=== PATIENT | male | born 1970 | race Caucasian/White ===

== ENCOUNTER 2016-12-19 08:24 | Observation (INO) | payer OTHER ==
[2016-12-19 08:25] VITALS: BMI 24.0
[2016-12-19] MEDS ORDERED: Sodium Chloride 0.9% 1,000 ML IV ONE (09:14)
[2016-12-19] MEDS ORDERED: Piperacillin/Tazobact 3.375 gm 100 ML IV STA (09:17)
[2016-12-19] MEDS ORDERED: Sodium Chloride 0.9% 1,000 ML ONE (10:26)
[2016-12-19] MEDS ORDERED: Piperacillin/Tazobact 3.375 gm 100 ML IVPB ONE (10:30)
[2016-12-19 10:36] LABS: BASO % 0.3 % (0.0-2.0); EOS % 0.2 % (0.0-4.0); HEMATOCRIT 42.8 % (35.0-51.0); LYMPH # 1.2 K/uL (1.0-4.3); MEAN CORPUSCULAR HEMOGLOBIN 27.1 pg (27.0-31.0); MEAN CORPUSCULAR HGB CONC 32.3 g/dL (33.0-37.0); MEAN PLATELET VOLUME 8.3 fL (7.2-11.7); MONO # 0.9 K/uL (0.0-0.8); MONO % 8.1 % (0.0-10.0); RED CELL DISTRIBUTION WIDTH 13.6 % (11.5-14.5); WHITE BLOOD COUNT 10.8 K/uL (4.8-10.8)
[2016-12-19 10:51] LABS: CHLORIDE 95 mmol/L (98-107); SODIUM 138 mmol/L (132-148)
[2016-12-19 10:52] LABS: POTASSIUM 3.7 mmol/L (3.6-5.2)
[2016-12-19 10:54] LABS: GFR AFRICAN-AMERICAN > 60
[2016-12-19 10:55] LABS: BLOOD UREA NITROGEN 11 mg/dL (9-20); CARBON DIOXIDE 28 mmol/L (22-30); GLUCOSE,RANDOM 113 mg/dL (75-110)
--- NOTE | 2016-12-19 11:28 | C.PDOC ---
History Of Present Illness 46 yr old male presents to the ER for evaluation of pain and swelling to the chin area and lower lip for the past 2 days. Patient reports 3 days ago he noticed a abscess which he popped and ever since he has had pain and swelling to the area which radiates to the left side of the jaw and under. Patient denies fever, chills, vision changes, chest pain, SOB, nausea, vomiting, neck pain, weakness or numbness. Time Seen by Provider: 12/19/16 09:07 Chief Complaint (Nursing): Abnormal Skin Integrity History Per: Patient History/Exam Limitations: no limitations Onset/Duration Of Symptoms: Days (2) Past Medical History Reviewed: Historical Data, Nursing Documentation, Vital Signs Vital Signs: Last Vital Signs Temp 98.3 F 12/19/16 11:42 Pulse 77 12/19/16 11:42 Resp 20 12/19/16 11:42 BP 125/75 12/19/16 11:42 Pulse Ox 99 12/19/16 13:29 Family History: States: No Known Family Hx - Social History Hx Tobacco Use: No Hx Alcohol Use: No Hx Substance Use: No - Immunization History Hx Tetanus Toxoid Vaccination: No Hx Influenza Vaccination: No Hx Pneumococcal Vaccination: No Review Of Systems Except As Marked, All Systems Reviewed And Found Negative. Constitutional: Positive for: Other (Pianful and swelling area to the chin, radaiting to the jaw line. ). Negative for: Fever, Chills Cardiovascular: Negative for: Chest Pain Respiratory: Negative for: Shortness of Breath Gastrointestinal: Negative for: Nausea, Vomiting Neurological: Negative for: Weakness, Numbness, Headache, Dizziness Physical Exam - Physical Exam Appears: Well, Non-toxic, No Acute Distress Skin: Warm, Dry, Other (Swelling and tenderness to the left jaw, angle of the jaw. ) Head: Atraumatic, Normacephalic Oral Mucosa: Moist Lips: Other ((+) Significant edema to the lower lip with point erythema to the mid chin. ) Throat: Normal, No Erythema, No Exudate Lymphatic: Adenopathy (cervical chain adenopathy), Other (No fluctuance. No induration. ) Cardiovascular: Rhythm Regular, No Murmur Respiratory: Normal Breath Sounds, No Stridor, No Wheezing Extremity: Normal ROM, No Swelling Neurological/Psych: Oriented x3, Normal Speech, Normal Motor ED Course And Treatment - Laboratory Results Result Diagrams: 12/19/16 10:30 12/19/16 10:30 O2 Sat by Pulse Oximetry: 99 - CT Scan/US CT - Maxillofacial Other Rad Studies (CT/US): Read By Radiologist, Radiology Report Reviewed CT/US Interpretation: CT scan of the maxillofacial skeleton 12/19/2016. History : Rule out jaw abscess. Contiguous helical/transaxial l computed tomography images of the mandible performed in standard fashion following intravenous injection of approximately 100 cc of Visipaque 320 contrast material. Additional 2 dimensional sagittal and coronal reformats provided. . No prior study available for comparison. Radiation dose: Total exam DLP = 825.35 mGy- cm. Findings: The current study reveals infiltration/induration changes within the anterior mid/bilateral soft tissues overlying the symphysis of the mandible extending posterolaterally more so on the left than right. Findings are consistent with localized cellulitis. No definitive drainable fluid/ abscess collection identified. The mandibular cortex appears intact. No evidence of significant dental caries identified to suggest a dental origin of this presumed cellulitis. There may also be some tjjb-[id number] swelling of the lower and to a lesser degree upper lips. Incidental note made of missing left side incisor tooth and right bicuspid right canine tooth as well as left 2nd bicuspid and left 1st molar. There are multiple small to medium sized bilateral cervical lymph nodes seen within the submental, submandibular, jugulodigastric and posterior jugular chain regions. The largest of these lymph nodes are located in the submandibular regions, left measuring approximately 17 mm and on the right measuring approximately 16 mm. These lymph nodes are likely reactive. The visualized parotid and submandibular glands unremarkable. There is mild of enlargement of the palatine tonsils however no peritonsillar abscess or fluid collection. Slight encroachment of lingual tonsils into the vallecula. Free margin of the epiglottis is normal. The visualized paranasal sinuses are well-developed mid. The no fluid levels seen to suggest acute sinusitis. Minimal mucosal thickening noted within the ethmoid air complex extending superiorly into the frontal sinus. . Impression: Findings are consistent with cellulitis involving the anterior mid and bilateral soft tissues overlying the symphysis of the mandible extending posterolaterally more so on the left side than right. In addition, there appears to be swelling of the lower lip and probably upper lip as well. No definitive drainable fluid/ abscess collection. No evidence of osteomyelitis seen at this time. See above discussion for additional findings and details. Medical Decision Making Medical Decision Making: PLAN: * CT - Maxillofacial * CBC * Zoysn IV * Vancomycin IV * Sodium Chloride IV Disposition Counseled Patient/Family Regarding: Studies Performed - Disposition Disposition: HOSPITALIZED Disposition Time: 15:04 Condition: GUARDED - POA Present On Arrival: None - Clinical Impression Clinical Impression: Cellulitis - Scribe Statement The provider has reviewed the documentation as recorded by the Taylor Kimball Provider Attestation: All medical record entries made by the Taylor were at my direction and personally dictated by me. I have reviewed the chart and agree that the record accurately reflects my personal performance of the history, physical exam, medical decision making, and the department course for this patient. I have also personally directed, reviewed, and agree with the discharge instructions and disposition. Decision To Admit - Pt Status Changed To: Hospital Disposition Of: Observation - . Bed Request Type: Regular Patient Diagnosis: Cellulitis
[2016-12-19] MEDS ORDERED: Iodixanol 320 MG/ML 100 ML BOTTLE IV ONE (11:56)
--- NOTE | 2016-12-19 13:28 | CT ---
CT scan of the maxillofacial skeleton 12/19/2016. History: Rule out jaw abscess. Contiguous helical/transaxial l computed tomography images of the mandible performed in standard fashion following intravenous injection of approximately 100 cc of Visipaque 320 contrast material. Additional 2 dimensional sagittal and coronal reformats provided. . No prior study available for comparison. Radiation dose: Total exam DLP = 825.35 mGy-cm. Findings: The current study reveals infiltration/induration changes within the anterior mid/bilateral soft tissues overlying the symphysis of the mandible extending posterolaterally more so on the left than right. Findings are consistent with localized cellulitis. No definitive drainable fluid/ abscess collection identified. The mandibular cortex appears intact. No evidence of significant dental caries identified to suggest a dental origin of this presumed cellulitis. There may also be some aocv-se-ivqekozf swelling of the lower and to a lesser degree upper lips. Incidental note made of missing left side incisor tooth and right bicuspid right canine tooth as well as left 2nd bicuspid and left 1st molar. There are multiple small to medium sized bilateral cervical lymph nodes seen within the submental, submandibular, jugulodigastric and posterior jugular chain regions. The largest of these lymph nodes are located in the submandibular regions, left measuring approximately 17 mm and on the right measuring approximately 16 mm. These lymph nodes are likely reactive. The visualized parotid and submandibular glands unremarkable. There is mild of enlargement of the palatine tonsils however no peritonsillar abscess or fluid collection. Slight encroachment of lingual tonsils into the vallecula. Free margin of the epiglottis is normal. The visualized paranasal sinuses are well-developed mid. The no fluid levels seen to suggest acute sinusitis. Minimal mucosal thickening noted within the ethmoid air complex extending superiorly into the frontal sinus. . Impression: Findings are consistent with cellulitis involving the anterior mid and bilateral soft tissues overlying the symphysis of the mandible extending posterolaterally more so on the left side than right. In addition, there appears to be swelling of the lower lip and probably upper lip as well. No definitive drainable fluid/abscess collection. No evidence of osteomyelitis seen at this time. See above discussion for additional findings and details.
--- NOTE | 2016-12-19 20:09 | CP.PCM.PN ---
Subjective - Date & Time of Evaluation Date of Evaluation: 12/19/16 Time of Evaluation: 06:45 - Subjective Subjective: H&P dictated #[id number] Objective - Vital Signs/Intake and Output Vital Signs (last 24 hours): Temp Pulse Resp BP Pulse Ox 99.8 F H 81 18 114/74 97 12/19/16 17:16 12/19/16 17:16 12/19/16 17:16 12/19/16 17:16 12/19/16 17:16 - Medications Medications: Current Medications Acetaminophen (Tylenol 325mg Tab) 650 mg PO Q6 PRN PRN Reason: Pain, Mild (1-3) Last Admin: 12/19/16 18:18 Dose: 650 mg Ceftriaxone Sodium (Rocephin Iv 1 Gm Duplex) 50 mls @ 100 mls/hr IVPB DAILY [facility] Vancomycin/Sodium Chloride (Vancocin) 200 mls @ 166.6 mls/hr IVPB Q12H [facility] Pneumococcal Polyvalent Vaccine (Pneumovax 23 Vaccine) 0.5 ml IM .ONCE ONE Stop: 12/21/16 10:01
[2016-12-19] MEDS: Vancomycin 1 gm/NS 200 ml 200 ML IVPB SCH (21:00)
--- NOTE | 2016-12-19 23:11 | HP ---
CHIEF COMPLAINT: Swelling of the chin and lower lip, progressively getting worse over the past 4 days. HISTORY OF PRESENT ILLNESS: The patient is a 46-year-old male with a remote history of anemia, status post blood transfusion, unknown type of anemia, had not followed up with any doctors, came into the ED with complaints of lower lip , chin and left facial swelling, which has been progressively getting worse over the past 4 days. As per the patient, he had any groan hair and started noticing swelling and pimple, which he manipulated and extracted pus. Since then, he has noticed worsening swelling and redness and erythema and pain for which he came to the ED for further evaluation. When I examine, he denies any dizziness. Complains of headache on the left side of his head where the swelling is. Denies any nausea, vomiting, abdominal pain, diarrhea or constipation. Denies any chest pain, shortness of breath or wheezing. Denies any cold, cough, sore throat, runny nose. Denies any fever proceeded to this or did not have any chills or rigors. Denies any urinary complaints. Denies any leg pains or leg cramps. Denies any other neurologic symptoms. PAST MEDICAL HISTORY: Anemia, status post blood transfusion many years ago. PAST SURGICAL HISTORY: Denies any past surgical history. FAMILY HISTORY: Denies any family history of hypertension, diabetes. 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 SOCIAL HISTORY: Denies any smoking, alcohol or drug abuse. ALLERGIES: No known drug allergies. MEDICATIONS: None at home. REVIEW OF SYSTEMS: As described in history of present illness. All other systems reviewed and were found to be negative. PHYSICAL EXAMINATION: GENERAL: Middle-aged male lying in bed in no acute distress. VITAL SIGNS: Blood pressure 114/74, pulse 81, respirations 18, temperature 99.8 degrees Fahrenheit, O2 sats 97% on room air. HEENT: Pupils equal, round, reacting to light and accommodation. Extraocular muscles intact. No icterus, no pallor. There is swelling of the lower lip and swelling of the chin and both the face and the lower jaw, warm to touch, tenderness present. There is no oozing noted. NECK: Supple. No JVD. CHEST: Moving equally bilaterally on respiration. LUNGS: Bilateral vesicular breath sounds. No wheezing, no rhonchi. CARDIOVASCULAR: S1, S2 present, regular. ABDOMEN: Soft, nontender. Bowel sounds present. No guarding, no rigidity, no rebound tenderness noted. CENTRAL NERVOUS SYSTEM: Alert, awake, oriented x 3. No focal deficits noted. EXTREMITIES: No edema. Palpable peripheral pulses. LABORATORY DATA: Labs done from ED, WBC 10.8, hemoglobin 13.8, hematocrit 42.8 , platelets 180. Sodium 138, potassium 3.7, chloride 95, bicarbonate 28, BUN 11 , creatinine 0.8, glucose 113, calcium 9.0. Facial bone CT consistent with bilateral soft tissues overlying the surfaces of the mandible extending posteriorly, more so on the left side than the right. Swelling of the lower lip and upper lip. There is no drainable abscess collection. No osteomyelitis. Lymph node enlarged, most likely reactive. ASSESSMENT AND PLAN: Middle-aged male with no significant past medical history other than remote history of anemia, status post blood transfusion. H and H normal. He came into the ED with a 4-day history of lower lip, chin and left facial swelling progressively getting worse with difficulty swallowing. In the ED, the patient underwent CT of the face, consistent with cellulitis. The patient is being admitted. 1. Facial cellulitis without any evidence of abscess. The patient received Zosyn and vancomycin in the ED. We will continue with Rocephin 1 gram IV daily , vancomycin 1 gram IV q. 12 hours. We will repeat labs in the morning. We will obtain faciomaxillary surgical consultation. We will obtain ID evaluation. We will add further recommendation as his clinical course progresses. Graeme Sargent MD cc: [id number] TT: 12/19/2016 23:11:21 kiera CHAVEZ
[2016-12-20 00:28] VITALS: RESP 20
[2016-12-20 07:46] LABS: BASO % 0.4 % (0.0-2.0); EOS # 0.1 K/uL (0.0-0.7); EOS % 1.8 % (0.0-4.0); HEMATOCRIT 40.8 % (35.0-51.0); LYMPH # 1.1 K/uL (1.0-4.3); LYMPH % 14.3 % (20.0-40.0); MEAN CELL VOLUME 84.2 fL (80.0-94.0); MEAN CORPUSCULAR HEMOGLOBIN 27.7 pg (27.0-31.0); MEAN CORPUSCULAR HGB CONC 32.9 g/dL (33.0-37.0); MEAN PLATELET VOLUME 8.5 fL (7.2-11.7); MONO # 0.9 K/uL (0.0-0.8); MONO % 11.6 % (0.0-10.0); NRBC % 0.1 % (0.0-2.0); RED CELL DISTRIBUTION WIDTH 14.1 % (11.5-14.5); WHITE BLOOD COUNT 7.8 K/uL (4.8-10.8)
[2016-12-20 08:07] LABS: CHLORIDE 96 mmol/L (98-107)
[2016-12-20 08:08] LABS: SODIUM 138 mmol/L (132-148)
[2016-12-20 08:10] LABS: CARBON DIOXIDE 27 mmol/L (22-30); CHOLESTEROL 179 mg/dL (0-199); GFR AFRICAN-AMERICAN > 60
[2016-12-20 08:11] LABS: ALB/GLOB RATIO 1.1 (1.0-2.1); ALKALINE PHOSPHATASE 74 U/L (38-126); ALT/SGPT 51 U/L (21-72); AST/SGOT 40 U/L (17-59); BILIRUBIN,TOTAL 0.9 mg/dL (0.2-1.3); BLOOD UREA NITROGEN 8 mg/dL (9-20); CALCIUM 8.8 mg/dl (8.6-10.4); GLUCOSE,RANDOM 102 mg/dL (75-110); TOTAL PROTEIN 8.1 g/dL (6.3-8.3)
[2016-12-20 08:28] LABS: RBC URINE < 1 /hpf (0-3); URINE BILIRUBIN NEGATIVE (NEGATIVE); URINE BLOOD NEGATIVE (NEGATIVE); URINE COLOR Straw (YELLOW); URINE GLUCOSE (UA) NORMAL (Normal); URINE KETONE NEGATIVE (NEGATIVE); URINE LEUKOCYTE ESTERASE NEG Leu/uL (Negative); URINE PROTEIN NEGATIVE (NEGATIVE); URINE UROBILINOGEN NORMAL mg/dL (0.2-1.0); WBC URINE < 1 /hpf (0-5)
[2016-12-20 09:00] LABS: THYROID STIMULATING HORMONE 1.52 mIU/L (0.46-4.68)
[2016-12-20] MEDS: Vancomycin 1 gm/NS 200 ml 200 ML IVPB SCH ×2 (09:36→20:21)
--- NOTE | 2016-12-20 10:55 | CP.PCM.PN ---
Subjective - Date & Time of Evaluation Date of Evaluation: 12/20/16 Time of Evaluation: 10:00 - Subjective Subjective: Progress note dictated #[id number] Objective - Vital Signs/Intake and Output Vital Signs (last 24 hours): Temp Pulse Resp BP Pulse Ox 98.4 F 75 20 103/64 98 12/20/16 08:00 12/20/16 08:00 12/20/16 08:00 12/20/16 08:00 12/20/16 08:00 Intake and Output: 12/20/16 12/20/16 06:59 18:59 Intake Total 550 240 Balance 550 240 - Medications Medications: Current Medications Acetaminophen (Tylenol 325mg Tab) 650 mg PO Q6 PRN PRN Reason: Pain, Mild (1-3) Last Admin: 12/20/16 06:36 Dose: 650 mg Ceftriaxone Sodium (Rocephin Iv 1 Gm Duplex) 50 mls @ 100 mls/hr IVPB DAILY [facility] Vancomycin/Sodium Chloride (Vancocin) 200 mls @ 166.6 mls/hr IVPB Q12H [facility] Last Admin: 12/20/16 09:36 Dose: 166.6 mls/hr Pneumococcal Polyvalent Vaccine (Pneumovax 23 Vaccine) 0.5 ml IM .ONCE ONE Stop: 12/21/16 10:01 - Labs Labs: 12/20/16 07:28 12/20/16 07:28
[2016-12-20] MEDS: cefTRIAXone IV 1 gm in Dextros 50 ML IVPB SCH (11:03)
--- NOTE | 2016-12-20 20:28 | PN ---
DATE: 12/20/2016 SUBJECTIVE: The patient was seen and examined at bedside. The patient is still complaining of swelling of the lower lip and the lower jaw and discomfort in the face, able to take clear liquids. Denies any other complaints. PHYSICAL EXAMINATION: GENERAL: A middle-aged male lying in bed in no acute distress. VITAL SIGNS: Blood pressure 123/76, pulse 63, respirations 20, temperature 98.2 degrees Fahrenheit, O2 sat 98% on room air. HEENT: Pupils equal, round, reacting to light and accommodation. Extraocular muscles intact. No icterus, no pallor. There is swelling of the lower lip and lower chin with erythema, tender to touch, warm to touch. There is no fluctuating mass palpable. NECK: Supple. No JVD. LUNGS: Bilateral vesicular breath sounds. No wheezing, no rhonchi. CARDIOVASCULAR: S1, S2 present, regular. ABDOMEN: Soft, nontender. Bowel sounds present. No guarding, no rigidity, no rebound tenderness noted. CENTRAL NERVOUS SYSTEM: Alert, awake, oriented x 3. No focal deficits noted. EXTREMITIES: No edema. Palpable peripheral pulses. MEDICATIONS: Include vancomycin 1 gram IV q. 12 hours, Rocephin 1 gram daily, Tylenol as needed. LABORATORY DATA: From this morning, WBC 7.8, hemoglobin 13.4, hematocrit 40.8, platelets 166. Sodium 138, potassium 4.0, chloride 96, bicarbonate 27, BUN 8, creatinine 0.8, glucose 102. LFTs within normal limits. C-reactive protein more than 15, total protein 8.1, albumin 4.1, triglycerides 51, cholesterol 179 , LDL 80, HDL 33. TSH 1.52. Blood cultures negative so far. ASSESSMENT AND PLAN: Middle-aged male with facial cellulitis without any evidence of abscesses on CT. Continue with vancomycin and Rocephin. Awaiting maxillofacial surgery's evaluation. We will request ID evaluation. Continue with other current therapy. We will add further recommendation as his clinical course progresses. Graeme Sargent MD cc: [id number] TT: 12/20/2016 20:26:59 Confirmation # [id number] Dictation # [id number] mn SCOTT
--- NOTE | 2016-12-20 22:31 | CP.PCM.CON ---
History of Present Illness - History of Present Illness History of Present Illness: dictated Past Patient History - Infectious Disease Hx of Infectious Diseases: None - Past Medical History & Family History Past Medical History?: Yes - Past Social History Smoking Status: Never Smoked - CARDIAC Hx Cardiac Disorders: No - PULMONARY Hx Respiratory Disorders: No - NEUROLOGICAL Hx Neurological Disorder: No - HEENT Hx HEENT Problems: No - RENAL Hx Chronic Kidney Disease: No - ENDOCRINE/METABOLIC Hx Endocrine Disorders: No - HEMATOLOGICAL/ONCOLOGICAL Hx Blood Disorders: No - INTEGUMENTARY Other/Comment: swelling on the lower lip - MUSCULOSKELETAL/RHEUMATOLOGICAL Hx Musculoskeletal Disorders: No Hx Falls: No - GASTROINTESTINAL Hx Gastrointestinal Disorders: No - GENITOURINARY/GYNECOLOGICAL Hx Genitourinary Disorders: No - PSYCHIATRIC Hx Psychophysiologic Disorder: No Hx Substance Use: No - SURGICAL HISTORY Hx Surgeries: No - ANESTHESIA Hx Anesthesia: Yes (from tooth extraction during childhood) Hx Anesthesia Reactions: No Meds Allergies/Adverse Reactions: Allergies Allergy/AdvReac Type Severity Reaction Status Date / Time No Known Allergies Allergy Verified 09/20/16 11:27 - Medications Medications: Current Medications Acetaminophen (Tylenol 325mg Tab) 650 mg PO Q6 PRN PRN Reason: Pain, Mild (1-3) Last Admin: 12/20/16 19:10 Dose: 650 mg Ceftriaxone Sodium (Rocephin Iv 1 Gm Duplex) 50 mls @ 100 mls/hr IVPB DAILY [facility] Last Admin: 12/20/16 11:03 Dose: 100 mls/hr Vancomycin/Sodium Chloride (Vancocin) 200 mls @ 166.6 mls/hr IVPB Q12H [facility] Last Admin: 12/20/16 20:21 Dose: 166.6 mls/hr Pneumococcal Polyvalent Vaccine (Pneumovax 23 Vaccine) 0.5 ml IM .ONCE ONE Stop: 12/21/16 10:01 Results - Vital Signs Recent Vital Signs: Last Vital Signs Temp 98.2 F 12/20/16 17:31 Pulse 63 12/20/16 17:31 Resp 20 12/20/16 17:31 BP 123/76 12/20/16 17:31 Pulse Ox 98 12/20/16 17:31 - Labs Result Diagrams: 12/20/16 07:28 12/20/16 07:28
--- NOTE | 2016-12-21 07:42 | CON ---
DATE: 12/20/2016 REQUESTING PHYSICIAN: Dr. Sargent. HISTORY OF PRESENT ILLNESS: This patient is a 46-year-old male. He presented to Emergency Room with infection of the lip and the chin with swelling, marked swelling of his face. He reports he was hav ing an abscesses and he popped it and started to have pain and swelling which radiated to the left si de of the jaw. He denies any fever, but his left face is swollen. He denies any trouble breathing. Denies any trouble eating and had no fever, no vision problems, no headaches, no chest pain, no shor tness of breath, no nausea, no vomiting, no diarrhea. He denies any history of diabetes. He came in with a temperature of 98.3, pulse 77, blood pressure 125/75, pulse ox is 99. He does not smoke, [place] s not drink, denies any other ____. REVIEW OF SYSTEMS: Unremarkable for any other complaints. MEDICATIONS: Were started. He is on vancomycin and Rocephin which probably is adequate. PHYSICAL EXAMINATION: VITAL SIGNS: Temperature was 98.2, pulse 63, blood pressure is 123/76, respirations are 20. HEENT: Head is atraumatic, normocephalic. Pupils are reacting to light. Throat: No congestion, no thrush seen. He does have this swelling in the lower lip and there is some induration which goes up to the dentition, and outside there is a small abscess with crustings and swelling of the face left side. Contour of the face is also swollen and warm. The right face is unremarkable. NECK: Supple. LUNGS: Clear. No crackles or rales present. HEART: S1, S2 is regular. No murmurs appreciated. ABDOMEN: Soft. EXTREMITIES: No edema, clubbing or cyanosis. LABORATORY DATA: White count is 7.8, hemoglobin 13.4, hematocrit 40.8, platelet count is 166. He ca me in with 80.4 neutrophils. Creatinine is 0.8. CRP is more than 15. UA is negative. He also had a CAT scan of the facial bones which showed findings are consistent with cellulitis invol ving the anterior, mid and bilateral soft tissue overlying the symphysis of the mandible extending po steriorly, more so on the left side than the right; appears to be swelling of the lower lip and also upper. No definite drainable abscess collection. No evidence of osteomyelitis noted. At this time, we will continue to treat him aggressively for cellulitis. There is no drainable absce ss, hence, he should improve clinically with these antibiotics. Will follow with the primary. Once he is stable, maybe he can go home on oral antibiotics. Will follow. Deandre Biggs MD cc: [id number] TT: 12/21/2016 07:42:03 Confirmation # [id number] Dictation # [id number] mn
[2016-12-21] MEDS: Vancomycin 1 gm/NS 200 ml 200 ML IVPB SCH ×2 (09:00→21:19)
[2016-12-21] MEDS ORDERED: Pneumococcal 23-Valent Vaccine IM ONE (10:00)
[2016-12-21] MEDS: cefTRIAXone IV 1 gm in Dextros 50 ML IVPB SCH (10:35)
--- NOTE | 2016-12-21 11:37 | CP.PCM.PN ---
Subjective - Date & Time of Evaluation Date of Evaluation: 12/21/16 Time of Evaluation: 11:00 - Subjective Subjective: Progress note dictated #[id number] Objective - Vital Signs/Intake and Output Vital Signs (last 24 hours): Temp Pulse Resp BP Pulse Ox 98.1 F 58 L 20 115/71 98 12/21/16 08:33 12/21/16 08:33 12/21/16 08:33 12/21/16 08:33 12/21/16 08:33 Intake and Output: 12/21/16 12/21/16 06:59 18:59 Intake Total 690 Output Total 600 Balance 90 - Medications Medications: Current Medications Acetaminophen (Tylenol 325mg Tab) 650 mg PO Q6 PRN PRN Reason: Pain, Mild (1-3) Last Admin: 12/21/16 05:35 Dose: 650 mg Ceftriaxone Sodium (Rocephin Iv 1 Gm Duplex) 50 mls @ 100 mls/hr IVPB DAILY [facility] Last Admin: 12/21/16 10:35 Dose: 100 mls/hr Vancomycin/Sodium Chloride (Vancocin) 200 mls @ 166.6 mls/hr IVPB Q12H [facility] Last Admin: 12/21/16 09:00 Dose: 166.6 mls/hr
--- NOTE | 2016-12-21 16:51 | PN ---
DATE: 12/21/2016 The patient was seen and examined at bedside. He is still complaining of worsening lower lip swellin g and erythema and redness is pointing towards the lip and not able to eat as before. Denies any oth er complaints. PHYSICAL EXAMINATION: GENERAL: Middle-aged male lying in bed in no acute distress. VITAL SIGNS: Blood pressure 115/71, pulse 58, respirations 20, temperature 98.1 degrees Fahrenheit, O2 sats 98% on room air. HEENT: Pupils equal, round, reacting to light and accommodation. Extraocular muscles intact. No ic terus, no pallor. No oral thrush. No pharyngeal congestion. There is lower lip increased swelling, erythema is now confined to the middle part of the chin with crust formation and purulent discharge noted. Tenderness noted. Warm to touch. NECK: Supple. No JVD. LUNGS: Bilateral vesicular breath sounds. No wheezing, no rhonchi. CARDIOVASCULAR: S1, S2 present, regular. ABDOMEN: Soft, nontender. Bowel sounds present. No rigidity, no rebound tenderness noted. CENTRAL NERVOUS SYSTEM: Alert, awake, oriented x 3. No focal deficits noted. EXTREMITIES: No edema. Palpable peripheral pulses. MEDICATIONS: Include Tylenol as needed, Rocephin 1 gram IV daily, vancomycin 1 gram IV q. 12 hours. ASSESSMENT AND PLAN: Middle-aged male with no significant past medical history admitted for facial c ellulitis, now cellulitis confined to the lower jaw in the mid region and the swelling of the lower l ip worse than yesterday, possible fluctuant abscess with discharge. The patient may benefit from inc ision and drainage. Will request surgical evaluation. Awaiting for maxillofacial surgeon. ID consu lt appreciated. Continue with Rocephin and vancomycin. Blood cultures remain negative so far. We w ill add further recommendations as his clinical course progresses. Graeme Sargent MD cc: [id number] TT: 12/21/2016 16:50:39 Confirmation # [id number] Dictation # [id number] miguel
--- NOTE | 2016-12-21 18:04 | CP.PCM.CON ---
History of Present Illness - History of Present Illness History of Present Illness: PGY-1 consult note for General Surgery, Dr. Vásquez Consulted for: Facial Cellulitis HPI: 46 yo male admitted on 12/19/16 complaining of facial pain/swelling. One week ago, he had a pimple on his chin that was large and painful. 3 days later , he popped it, releasing white pus. The next day, the pimple was crusting and his lip was swollen. He complains of pain on the same side of the face. Pain is alleviated with Tylenol. He states his pain was at its worst yesterday and that today it feels better. Since the first day of the swelling, pt states the swelling has greatly decreased. He states he is able to breathe and sleep without difficulty, but eating has proved difficult due to the lip swelling. He denies prior episodes of swelling. Pt denies fever, chills, shortness of breath , chest pain, nausea, vision changes or tooth pain. PMHx: anemia PSH: none Allergies: None Meds: none Review of Systems - Review of Systems Review of Systems: see HPI - Constitutional Constitutional: absent: Chills, Fever - EENT Eyes: absent: Change in Vision - Cardiovascular Cardiovascular: absent: Chest Pain, Chest Pain at Rest - Respiratory Respiratory: absent: Cough - Gastrointestinal Gastrointestinal: absent: Abdominal Pain, Nausea, Vomiting - Genitourinary Genitourinary: absent: Dysuria - Integumentary Additional comments: swelling of lower lip, tenderness to the left jaw Past Patient History - Infectious Disease Hx of Infectious Diseases: None - Past Medical History & Family History Past Medical History?: No - Past Social History Smoking Status: Never Smoked - CARDIAC Hx Cardiac Disorders: No Hx Hypertension: No - PULMONARY Hx Respiratory Disorders: No - NEUROLOGICAL Hx Neurological Disorder: No - HEENT Hx HEENT Problems: No - RENAL Hx Chronic Kidney Disease: No - ENDOCRINE/METABOLIC Hx Endocrine Disorders: No Hx Diabetes Mellitus Type 1: No Hx Diabetes Mellitus Type 2: No - HEMATOLOGICAL/ONCOLOGICAL Hx Blood Disorders: No - INTEGUMENTARY Other/Comment: swelling on the lower lip - MUSCULOSKELETAL/RHEUMATOLOGICAL Hx Musculoskeletal Disorders: No Hx Falls: No - GASTROINTESTINAL Hx Gastrointestinal Disorders: No - GENITOURINARY/GYNECOLOGICAL Hx Genitourinary Disorders: No - PSYCHIATRIC Hx Psychophysiologic Disorder: No Hx Substance Use: No - SURGICAL HISTORY Hx Surgeries: No - ANESTHESIA Hx Anesthesia: Yes (from tooth extraction during childhood) Hx Anesthesia Reactions: No Meds Allergies/Adverse Reactions: Allergies Allergy/AdvReac Type Severity Reaction Status Date / Time No Known Allergies Allergy Verified 09/20/16 11:27 - Medications Medications: Current Medications Acetaminophen (Tylenol 325mg Tab) 650 mg PO Q6 PRN PRN Reason: Pain, Mild (1-3) Last Admin: 12/21/16 12:28 Dose: 650 mg Ceftriaxone Sodium (Rocephin Iv 1 Gm Duplex) 50 mls @ 100 mls/hr IVPB DAILY [facility] Last Admin: 12/21/16 10:35 Dose: 100 mls/hr Vancomycin/Sodium Chloride (Vancocin) 200 mls @ 166.6 mls/hr IVPB Q12H [facility] Last Admin: 12/21/16 09:00 Dose: 166.6 mls/hr Physical Exam - Constitutional Appears: Non-toxic, No Acute Distress - Head Exam Head Exam: ATRAUMATIC, NORMOCEPHALIC Additional comments: Lip swollen to about twice normal size. Lip is not obstructing airway. - Eye Exam Eye Exam: EOMI. absent: Scleral icterus Pupil Exam: NORMAL ACCOMODATION, PERRL - Respiratory Exam Respiratory Exam: NORMAL BREATHING PATTERN. absent: Respiratory Distress - Cardiovascular Exam Cardiovascular Exam: +S1, +S2. absent: JVD - GI/Abdominal Exam GI & Abdominal Exam: absent: Firm, Guarding, Rigid, Tenderness - Neurological Exam Neurological exam: Alert, Oriented x3 - Psychiatric Exam Psychiatric exam: Normal Affect, Normal Mood - Skin Skin Exam: Dry, Warm Additional comments: There is a crusty, non-weeping scab on his chin, close to his lip, and some erythema surrounding the scab. Pus expressed on palpation. Results - Vital Signs Recent Vital Signs: Last Vital Signs Temp 97.4 F L 12/21/16 15:15 Pulse 70 12/21/16 15:15 Resp 20 12/21/16 15:15 BP 106/74 12/21/16 15:15 Pulse Ox 100 12/21/16 15:15 - Labs Result Diagrams: 12/20/16 07:28 12/20/16 07:28 Assessment & Plan - Assessment and Plan (Free Text) Assessment: 46M w/facial pain a/w abscess and swollen lip Plan: Continue Warm compresses Continue IV antibiotics per ID Bacitracin application to wound Afebrile, WBCs WNL No need for I&D at this point Surgical team d/w with Dr. Fahad Tate, PGY-1
[2016-12-21] MEDS: Oxycodone/Acetaminophen 5/325 mg Tab PO PRN (19:00)
--- NOTE | 2016-12-21 21:31 | PN ---
DATE: 12/21/2016 SUBJECTIVE: The patient came in with facial cellulitis. He was still having swelling on the face, e specially on the lower lip and there was some crusting and may have an abscess there, as there is carlo e induration on the lower lip and the face area and the lower face appears still swollen and red; how ever, the lateral aspect of the swelling is getting better. He denies any other complaints. PHYSICAL EXAMINATION VITAL SIGNS: T-max is 97.4, pulse 70, blood pressure 106/74, respirations are 20. HEENT: Head is atraumatic, normocephalic. NECK: Supple. LUNGS: Clear. No crackles or rales present. HEART: S1, S2 regular. ABDOMEN: Soft, nontender, no guarding, no rigidity present. EXTREMITIES: Have no edema. Blood culture was no growth, but he does have impetigo and facial cellulitis at this time. He is on 2 antibiotics and once it starts to get better, we will see if this may need another day or so and ma y start to improve. If it improves, we can send him on Keflex and Bactrim or we can use this clindam ycin and that may be good enough. We will evaluate again and for now, we will leave him on IV antibi otics. IMPRESSION: He has cellulitis and impetigo of the face. Deandre Biggs MD cc: [id number] TT: 12/21/2016 21:30:54 Confirmation # [id number] Dictation # [id number] miguel
[2016-12-22] MEDS: Oxycodone/Acetaminophen 5/325 mg Tab PO PRN ×2 (03:15→11:15)
[2016-12-22 05:53] LABS: BASO % 0.4 % (0.0-2.0); EOS # 0.3 K/uL (0.0-0.7); EOS % 5.6 % (0.0-4.0); LYMPH # 1.7 K/uL (1.0-4.3); LYMPH % 32.4 % (20.0-40.0); MEAN CELL VOLUME 84.2 fL (80.0-94.0); MEAN CORPUSCULAR HEMOGLOBIN 27.4 pg (27.0-31.0); MEAN CORPUSCULAR HGB CONC 32.5 g/dL (33.0-37.0); MEAN PLATELET VOLUME 8.3 fL (7.2-11.7); MONO # 0.7 K/uL (0.0-0.8); MONO % 13.1 % (0.0-10.0); RED CELL DISTRIBUTION WIDTH 13.9 % (11.5-14.5); WHITE BLOOD COUNT 5.1 K/uL (4.8-10.8)
[2016-12-22 06:02] LABS: INR 1.1
[2016-12-22 06:08] LABS: CHLORIDE 96 mmol/L (98-107); SODIUM 139 mmol/L (132-148)
[2016-12-22 06:10] LABS: GFR AFRICAN-AMERICAN > 60
[2016-12-22 06:11] LABS: ALKALINE PHOSPHATASE 75 U/L (38-126); ALT/SGPT 85 U/L (21-72); AST/SGOT 55 U/L (17-59); BILIRUBIN,TOTAL 0.3 mg/dL (0.2-1.3); BLOOD UREA NITROGEN 9 mg/dL (9-20); CALCIUM 9.1 mg/dl (8.6-10.4); CARBON DIOXIDE 28 mmol/L (22-30); GLUCOSE,RANDOM 101 mg/dL (75-110); TOTAL PROTEIN 8.4 g/dL (6.3-8.3)
[2016-12-22] MEDS: Vancomycin 1 gm/NS 200 ml 200 ML IVPB SCH ×2 (08:18→21:38)
--- NOTE | 2016-12-22 10:59 | CP.PCM.PN ---
Subjective - Date & Time of Evaluation Date of Evaluation: 12/22/16 Time of Evaluation: 11:30 - Subjective Subjective: Progress note dictated #[id number] Objective - Vital Signs/Intake and Output Vital Signs (last 24 hours): Temp Pulse Resp BP Pulse Ox 97.9 F 54 L 20 111/71 99 12/22/16 08:00 12/22/16 08:00 12/22/16 08:00 12/22/16 08:00 12/22/16 08:00 Intake and Output: 12/22/16 12/22/16 06:59 18:59 Intake Total 300 Output Total 700 Balance -400 - Medications Medications: Current Medications Ceftriaxone Sodium (Rocephin Iv 1 Gm Duplex) 50 mls @ 100 mls/hr IVPB DAILY [facility] Last Admin: 12/21/16 10:35 Dose: 100 mls/hr Vancomycin/Sodium Chloride (Vancocin) 200 mls @ 166.6 mls/hr IVPB Q12H [facility] Last Admin: 12/22/16 08:18 Dose: 166.6 mls/hr Oxycodone/Acetaminophen (Percocet 5/325 Mg Tab) 1 tab PO Q4H PRN PRN Reason: Pain, moderate (4-7) Stop: 12/24/16 18:50 Last Admin: 12/22/16 03:15 Dose: 1 tab - Labs Labs: 12/22/16 05:45 12/22/16 05:45 PT 12.4 SECONDS (9.7-12.2) H 12/22/16 05:45 INR 1.1 12/22/16 05:45 APTT 33 SECONDS (21-34) 12/22/16 05:45
[2016-12-22] MEDS: cefTRIAXone IV 1 gm in Dextros 50 ML IVPB SCH (11:39)
--- NOTE | 2016-12-22 12:17 | CP.PCM.PN ---
Subjective - Date & Time of Evaluation Date of Evaluation: 12/22/16 Time of Evaluation: 12:12 - Subjective Subjective: PGY-1 note for General Surgery, Dr. Vásquez Pt S&E. Pt reports swelling of his lip/chin is greatly reduced following expression of pus from wound yesterday. He states the drainage continued overnight. Pt denies fever, chills, shortness of breath, difficulty eating/ sleeping or tooth pain. Objective - Vital Signs/Intake and Output Vital Signs (last 24 hours): Temp Pulse Resp BP Pulse Ox 97.9 F 54 L 20 111/71 99 12/22/16 08:00 12/22/16 08:00 12/22/16 08:00 12/22/16 08:00 12/22/16 08:00 Intake and Output: 12/22/16 12/22/16 06:59 18:59 Intake Total 300 Output Total 700 Balance -400 - Medications Medications: Current Medications Ceftriaxone Sodium (Rocephin Iv 1 Gm Duplex) 50 mls @ 100 mls/hr IVPB [facility]ILY [facility] Last Admin: 12/22/16 11:39 Dose: 100 mls/hr Vancomycin/Sodium Chloride (Vancocin) 200 mls @ 166.6 mls/hr IVPB Q12H [facility] Last Admin: 12/22/16 08:18 Dose: 166.6 mls/hr Oxycodone/Acetaminophen (Percocet 5/325 Mg Tab) 1 tab PO Q4H PRN PRN Reason: Pain, moderate (4-7) Stop: 12/24/16 18:50 Last Admin: 12/22/16 11:15 Dose: 1 tab - Labs Labs: 12/22/16 05:45 12/22/16 05:45 PT 12.4 SECONDS (9.7-12.2) H 12/22/16 05:45 INR 1.1 12/22/16 05:45 APTT 33 SECONDS (21-34) 12/22/16 05:45 - Constitutional Appears: Non-toxic, No Acute Distress - Head Exam Head Exam: ATRAUMATIC, NORMAL INSPECTION, NORMOCEPHALIC - Eye Exam Eye Exam: EOMI Pupil Exam: PERRL - ENT Exam ENT Exam: Mucous Membranes Moist Additional comments: Lower lip/chin area swollen yesterday, greatly reduced in size. - Respiratory Exam Respiratory Exam: Clear to Ausculation Bilateral, NORMAL BREATHING PATTERN - GI/Abdominal Exam GI & Abdominal Exam: Soft, Normal Bowel Sounds. absent: Tenderness - Extremities Exam Extremities Exam: Normal Inspection - Neurological Exam Neurological Exam: Alert, Awake, Oriented x3 - Skin Skin Exam: Normal Color, Warm Additional comments: Small amt of pus expressed on palpation. Assessment and Plan - Assessment and Plan (Free Text) Assessment: 46M w/facial pain a/w abscess and swollen lip Plan: Continue Warm compresses Continue IV antibiotics per ID Bacitracin application to wound Afebrile, WBCs WNL No need for I&D at this point f/u wound/viral culture Surgical team d/w with Dr. Fahad Tate, PGY-1
--- NOTE | 2016-12-22 16:54 | CP.PCM.PN ---
Subjective - Date & Time of Evaluation Date of Evaluation: 12/22/16 Time of Evaluation: 04:30 - Subjective Subjective: dictated Objective - Vital Signs/Intake and Output Vital Signs (last 24 hours): Temp Pulse Resp BP Pulse Ox 97.8 F 60 20 115/72 98 12/22/16 15:20 12/22/16 15:20 12/22/16 15:20 12/22/16 15:20 12/22/16 15:20 Intake and Output: 12/22/16 12/22/16 06:59 18:59 Intake Total 300 730 Output Total 700 Balance -400 730 - Medications Medications: Current Medications Ceftriaxone Sodium (Rocephin Iv 1 Gm Duplex) 50 mls @ 100 mls/hr IVPB DAILY [facility] Last Admin: 12/22/16 11:39 Dose: 100 mls/hr Vancomycin/Sodium Chloride (Vancocin) 200 mls @ 166.6 mls/hr IVPB Q12H [facility] Last Admin: 12/22/16 08:18 Dose: 166.6 mls/hr Oxycodone/Acetaminophen (Percocet 5/325 Mg Tab) 1 tab PO Q4H PRN PRN Reason: Pain, moderate (4-7) Stop: 12/24/16 18:50 Last Admin: 12/22/16 11:15 Dose: 1 tab - Labs Labs: 12/22/16 05:45 12/22/16 05:45 PT 12.4 SECONDS (9.7-12.2) H 12/22/16 05:45 INR 1.1 12/22/16 05:45 APTT 33 SECONDS (21-34) 12/22/16 05:45
--- NOTE | 2016-12-22 17:33 | PN ---
DATE: 12/22/2016 SUBJECTIVE: I came to see him. His swelling is decreasing, but he still has much swelling on the lo wer lip and has some induration. He said the pus was expressed and sent for culture and the culture is pending at this time. He still wants it to be cleaned. He denies any fever, chills, shortness of breath, but has lower lip swollen and the chin swollen. PHYSICAL EXAMINATION: VITAL SIGNS: He remains afebrile, however. Vitals are stable. Temperature is 97.8, pulse 60, blood pressure 115/72, respirations are 20. HEENT: Head is atraumatic, normocephalic. NECK: Supple otherwise and face has that cellulitis. LUNGS: Clear. HEART: S1, S2 regular. ABDOMEN: Soft. EXTREMITIES: No edema, clubbing or cyanosis. He has been on vancomycin and Zosyn. LABORATORY DATA: Have been unremarkable otherwise. There was only a blood culture, which was negati ve and we are waiting for the wound culture. If the wound culture arrives tomorrow, we will see that and decide or if he clinically improves. He has been here from 12/19 and today is the third day and tomorrow fourth, so he can probably go on cl indamycin 300 mg p.o. t.i.d. for 5 days and might be just okay to clear this infection. I told him no t to squeeze any areas. He is still in pain. Will wait to discharge him tomorrow. We are waiting f or the culture also. Deandre Biggs MD cc: [id number] TT: 12/22/2016 17:32:26 Confirmation # [id number] Dictation # [id number] miguel
--- NOTE | 2016-12-22 22:46 | PN ---
DATE: 12/22/2016 The patient was seen and examined at bedside. The patient is feeling better, but still complaining of some lower lip swelling and redness. Denies any other complaints. PHYSICAL EXAMINATION: GENERAL: Middle-aged male lying in bed in no acute distress. VITAL SIGNS: Blood pressure 115/72, pulse 60, respirations 20, temperature 97.8 degrees Fahrenheit, O2 sat is 98% on room air. HEENT: Pupils equal, round, reacting to light and accommodation. Extraocular muscles intact. No icterus, no pallor, no oral thrush, no pharyngeal congestion , swelling of the lower lip, jaw with crust formation noted. NECK: Supple, no JVD. LUNGS: Bilateral vesicular breath sounds. No wheezing, no rhonchi. CARDIOVASCULAR: S1, S2 present, regular. ABDOMEN: Soft, nontender. Bowel sounds present. No guarding, no rigidity, no rebound tenderness noted. CENTRAL NERVOUS SYSTEM: Alert, awake, oriented x 3. No focal deficits. EXTREMITIES: No edema. Palpable peripheral pulses. MEDICATIONS: Include Rocephin 1 gram daily, Percocet as needed, vancomycin 1 gram IV q. 12 hours. LABORATORY DATA: From this morning, WBC 5.1, hemoglobin 13.7, hematocrit 42, platelets 185. PT 12.4, INR 1.1, PTT 33, sodium 139, potassium 4.0, chloride 96 , BUN 9, creatinine 0.8, glucose 101, calcium 9.1. AST 55, ALT 85, alkaline phosphatase 75, total protein 8.4, albumin 4.2. Wound culture pending results. ASSESSMENT AND PLAN: Middle-aged male with facial cellulitis with upper lip cellulitis, localized swelling with small fluctuant area noted. The patient is on IV antibiotics. Surgery consult appreciated, did not recommend any I and D, continue with current antibiotics. Follow up the culture results. Follow up with ID. If cleared by ID, we will discharge patient home in a.m. Graeme Sargent MD cc: [id number] TT: 12/22/2016 22:45:27 Confirmation # [id number] Dictation # [id number] SCOTT
[2016-12-23] MEDS: Vancomycin 1 gm/NS 200 ml 200 ML IVPB SCH (08:41)
--- NOTE | 2016-12-23 10:46 | CP.PCM.PN ---
Subjective - Date & Time of Evaluation Date of Evaluation: 12/23/16 Time of Evaluation: 10:43 - Subjective Subjective: PGY-1 note for General Surgery, Dr. Vásquez Pt S&E. TL. Pt states pain and swelling have both improved and he feels the lip is nearly normal. He states he is having some pain on the skin of his chin below the scab. Pt is told to apply warm compresses to the painful area. Pt denies difficulty eating or breathing, headaches or dizziness. Objective - Vital Signs/Intake and Output Vital Signs (last 24 hours): Temp Pulse Resp BP Pulse Ox 98.1 F 59 L 20 118/69 98 12/23/16 08:11 12/23/16 08:11 12/23/16 08:11 12/23/16 08:11 12/23/16 08:11 Intake and Output: 12/23/16 12/23/16 06:59 18:59 Intake Total 800 Output Total 800 Balance 0 - Medications Medications: Current Medications Ceftriaxone Sodium (Rocephin Iv 1 Gm Duplex) 50 mls @ 100 mls/hr IVPB DAILY [facility] Last Admin: 12/22/16 11:39 Dose: 100 mls/hr Vancomycin/Sodium Chloride (Vancocin) 200 mls @ 166.6 mls/hr IVPB Q12H [facility] Last Admin: 12/23/16 08:41 Dose: 166.6 mls/hr Oxycodone/Acetaminophen (Percocet 5/325 Mg Tab) 1 tab PO Q4H PRN PRN Reason: Pain, moderate (4-7) Stop: 12/24/16 18:50 Last Admin: 12/22/16 11:15 Dose: 1 tab - Labs Labs: 12/22/16 05:45 12/22/16 05:45 PT 12.4 SECONDS (9.7-12.2) H 12/22/16 05:45 INR 1.1 12/22/16 05:45 APTT 33 SECONDS (21-34) 12/22/16 05:45 - Constitutional Appears: Non-toxic, No Acute Distress - Head Exam Head Exam: ATRAUMATIC, NORMOCEPHALIC - Eye Exam Eye Exam: EOMI Pupil Exam: PERRL - ENT Exam Additional comments: Lower lip/chin area mildly swollen. Nearly returned to baseline. - Respiratory Exam Respiratory Exam: NORMAL BREATHING PATTERN - GI/Abdominal Exam GI & Abdominal Exam: Soft, Normal Bowel Sounds - Extremities Exam Extremities Exam: Normal Inspection - Neurological Exam Neurological Exam: Alert, Awake, Oriented x3 - Psychiatric Exam Psychiatric exam: Normal Affect, Normal Mood - Skin Skin Exam: Normal Color, Warm Assessment and Plan - Assessment and Plan (Free Text) Assessment: 46M w/facial pain a/w abscess and swollen lip Plan: Continue Warm compresses Wound culture: positive for S. aureus - Pt on Rocephin per ID Bacitracin application to wound Afebrile, WBCs WNL No need for I&D at this point Surgical team d/w with Dr. Fahad Tate, PGY-1
[2016-12-23] MEDS: cefTRIAXone IV 1 gm in Dextros 50 ML IVPB SCH (11:11)
--- NOTE | 2016-12-23 11:47 | CP.PCM.PN ---
Subjective - Date & Time of Evaluation Date of Evaluation: 12/23/16 Time of Evaluation: 11:40 - Subjective Subjective: Discharge summary dictated #[id number] Objective - Vital Signs/Intake and Output Vital Signs (last 24 hours): Temp Pulse Resp BP Pulse Ox 98.1 F 59 L 20 118/69 98 12/23/16 08:11 12/23/16 08:11 12/23/16 08:11 12/23/16 08:11 12/23/16 08:11 Intake and Output: 12/23/16 12/23/16 06:59 18:59 Intake Total 800 Output Total 800 Balance 0 - Medications Medications: Current Medications Ceftriaxone Sodium (Rocephin Iv 1 Gm Duplex) 50 mls @ 100 mls/hr IVPB DAILY [facility] Last Admin: 12/23/16 11:11 Dose: 100 mls/hr Vancomycin/Sodium Chloride (Vancocin) 200 mls @ 166.6 mls/hr IVPB Q12H [facility] Last Admin: 12/23/16 08:41 Dose: 166.6 mls/hr Oxycodone/Acetaminophen (Percocet 5/325 Mg Tab) 1 tab PO Q4H PRN PRN Reason: Pain, moderate (4-7) Stop: 12/24/16 18:50 Last Admin: 12/22/16 11:15 Dose: 1 tab - Labs Labs: 12/22/16 05:45 12/22/16 05:45 PT 12.4 SECONDS (9.7-12.2) H 12/22/16 05:45 INR 1.1 12/22/16 05:45 APTT 33 SECONDS (21-34) 12/22/16 05:45
[2016-12-23 16:46] VITALS: BP 124/77; PULSE 60; TEMP 98.3; O2SAT 97
--- NOTE | 2016-12-23 22:14 | DS ---
DISCHARGE DIAGNOSES: Facial cellulitis. Wound culture with Staphylococcus aureus, swelling of the l ip with localized abscess. HISTORY OF PRESENT ILLNESS: The patient is a 46-year-old male with no significant past medical histo ry, admitted for lower facial swelling and lip swelling progressively getting worse. The patient is being admitted for further management. Today, the patient is feeling much better. Denies any headac he, dizziness. Denies any chest pain, shortness of breath or wheezing. Denies any nausea, vomiting, abdominal pain, diarrhea or constipation. Denies any urinary complaints. Denies any leg pains or l eg cramps. Denies any other neurologic symptoms. PHYSICAL EXAMINATION: GENERAL: Middle-aged male lying in bed in no acute distress. VITAL SIGNS: Blood pressure 118/69, pulse 59, respirations 20, temperature 98.1 degrees Fahrenheit, O2 sats 98% on room air. HEENT: Pupils equal, round, reacting to light and accommodation. Extraocular muscles intact. No ic terus, no pallor. There is decreased swelling of the lower lip and decreased swelling of the lower j aw and the chin region with an opening on the lower chin draining serosanguinous. NECK: Supple, no JVD. LUNGS: Bilateral vesicular breath sounds. No wheezing, no rhonchi. CARDIOVASCULAR: S1, S2 present, regular. ABDOMEN: Soft, nontender. Bowel sounds present. No guarding, no rigidity, no rebound tenderness no bobby. CENTRAL NERVOUS SYSTEM: Alert, awake, oriented x 3. No focal deficits noted. EXTREMITIES: No edema. Palpable peripheral pulses. LABORATORY DATA: Labs done from yesterday: WBC 5.1, hemoglobin 13.7, hematocrit 42, platelets 185. PT 12.4, INR 1.1, PTT 33, sodium 139, potassium 4.0, chloride 96, bicarbonate 28, BUN 9, creatinine 0 .8, glucose 101, calcium 9.1, total bilirubin 0.3, AST 55, ALT 85, alkaline phosphatase 75, total pro tein 8.4, albumin 4.2. UA negative. Facial CT consistent with cellulitis involving anterior mid and bilateral soft tissue overlying the symphysis of mandible extending posterolaterally, more so on the left side than the right. HOSPITAL COURSE: The patient was admitted to the hospital and started on Rocephin and vancomycin. T he patient was evaluated by ID. The patient's wound culture came back positive for Staph aureus. ID cleared the patient with clindamycin 300 mg p.o. t.i.d. for 5 days. Advised patient to follow up wit h PMD. The patient was evaluated by surgery for the possible abscess drainage. The abscess started draining on its own and did not require any I and D. The patient is cleared by surgery also. As the patient is otherwise stable, the patient is being discharged. CONDITION UPON DISCHARGE: The patient is alert, awake, oriented x 3 and hemodynamically stable. DISCHARGE INSTRUCTIONS: Follow up with PMD, advised to return to the ED if any recurrent symptoms or worsening of symptoms. DIET: Regular. ACTIVITY: As tolerated. DISCHARGE MEDICATIONS: Clindamycin 300 mg p.o. 3 times a day for 5 days along with Bacid 1 capsule p .o. b.i.d. for 5 days. Graeme Sargent MD cc: [id number] TT: 12/23/2016 22:14:01 ln
--- NOTE | 2016-12-23 23:16 | CP.PCM.PN ---
Subjective - Date & Time of Evaluation Date of Evaluation: 12/23/16 Time of Evaluation: 04:00 - Subjective Subjective: dictated Objective - Vital Signs/Intake and Output Vital Signs (last 24 hours): Temp Pulse Resp BP Pulse Ox 98.3 F 60 20 124/77 97 12/23/16 16:00 12/23/16 16:00 12/23/16 16:00 12/23/16 16:00 12/23/16 16:00 - Labs Labs: 12/22/16 05:45 12/22/16 05:45 PT 12.4 SECONDS (9.7-12.2) H 12/22/16 05:45 INR 1.1 12/22/16 05:45 APTT 33 SECONDS (21-34) 12/22/16 05:45
--- NOTE | 2016-12-24 07:32 | PN ---
DATE: 12/23/2016 SUBJECTIVE: The patient remained afebrile. He had no other complaints. His left leg swelling was d ecreasing. He had some crusting remaining and very minimal induration now left and his culture was p ending. Culture report was still not finalized, but he was looking good and he still was concerned a bout the skin dressings swelling and I told him he will have to take the oral antibiotic when he goes home. PHYSICAL EXAMINATION: VITAL SIGNS: T-max is 98.3, pulse 60, blood pressure 124/77, respirations are 20. HEENT: Head is atraumatic, normocephalic. The left facial swelling has markedly decreased. There w as a small bump left with a dressing on the lower lip with minimal swelling. NECK: Supple, no neck swelling. LUNGS: Clear. HEART: S1, S2 is regular. ABDOMEN: Soft, nontender, no guarding, no rigidity present. EXTREMITIES: Have no edema, clubbing or cyanosis. LABORATORY DATA: White count: We did not do any repeat labs today and there were no new labs, but t he wound culture was Staph aureus and I was going to send him with clindamycin 300 mg p.o. t.i.d. for 5 days which the [employer] wrote the prescription for me and he is told to take that. He had cellulitis of the face and I told him not to ever squeeze the pimples in that area as he developed cellulitis from that. He needs to follow with his primary. Deandre Biggs MD cc: [id number] TT: 12/24/2016 07:32:02 Confirmation # [id number] Dictation # [id number]
== END 2016-12-23 18:05 | disposition home or self-care (01) ==
LOC: C.ER 08:24 → C.9E 15:05 → C.3T 16:38 → INTOOBSV 12-20 10:56 → OBSVTOIN 12-20 10:56
PROVIDERS: ADMIT Internal Medicine; ATTEND Internal Medicine
DX: L03.211 Cellulitis of face (principal); B95.61 Methicillin susceptible Staphylococcus aureus infection as the cause of diseases classified elsewhere; Z23 Encounter for immunization; Z68.23 Body mass index [BMI] 23.0-23.9, adult
CPT/HCPCS: 36415; 70481; 80048; 80053; 80061; 81001; 83036; 84443; 85025; 85610; 85651; 85730; 86140; 87040; 87070; 87181; 90471; 90732; 96365; 96366; 96367; 99285; G0378; J0696; J2543; J3370; J7040; Q9967